=== PATIENT | female | born 1960 | race Two or more races ===

== ENCOUNTER 2019-08-14 10:11 | Emergency (ER) | payer OTHER, SELFPAY ==
[2019-08-14 10:15] VITALS: BP 166/85; PULSE 83; RESP 20; TEMP 36.7; O2SAT 100
--- NOTE | 2019-08-14 11:11 | ED.GENADULT ---
HPI - General Adult General Chief complaint: Upper Respiratory Infection Stated complaint: FEELS COLD Time Seen by Provider: 08/14/19 10:14 Source: patient and RN notes reviewed Mode of arrival: ambulatory Limitations: no limitations History of Present Illness HPI narrative: . 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 Patient requests return to work note as her work site is going on lock down . She denies fever, cough, foreign or domestic travel, Nausea /V/D, congestion, sore throat, frequency/urgency/ dysuria, sick family The patient has been informed that they may have pre-hypertension or Hypertension based on a BP reading in the department. She comments probably 'white-coat' ; I recommend that the patient call the primary care provider listed on their discharge instructions or a physician of their choice this week to arrange follow up for further evaluation of possible pre-hypertension or Hypertension Related Data Home Medications Medication Instructions Recorded Confirmed No Home Medications 08/14/19 08/14/19 Allergies Allergy/AdvReac Type Severity Reaction Status Date / Time hydrocodone AdvReac Severe NAUSEA, Verified 02/11/10 13:54 VOMITING Penicillins AdvReac Intermediate COULDN'T Verified 02/11/10 13:54 CONCENTRATE Review of Systems Review of Systems: Narrative: General/Constitutional: No weight loss,fever Eyes: N0: Redness,discharge Ears/Nose/Throat: No: Epistaxis,ear discharge Respiratory: Denies: Hemoptysis Gastrointestinal: No Vomiting, Bleeding-rectal Skin: No Lumps, eruption Neurologic: No Focal Weakness,Sz Hematologic: Denies: Petechiae/Purpura Psychiatric: No: Suicida ideationl All Other Systems: Reviewed and Negative PMFSH Comments At time of signature, agree with nursing past medical, surgical, social and family history. There is no relevant family history pertinent to the presenting complaint Exam Narrative: Exam Narrative: General Appearance: Well appearing, No distress EYE: PERRLA, Conjunctiva clear Ears: External ear normal Nose: Normal nose Mouth/Throat: Normal appearing, Normal lips Neck: Supple Respiratory: Airway patent, No respiratory distress Cardiovascular: RRR Musculoskeletal: Full ROM Skin: Warm, Dry Neurological: A&O x3, CN II-X intact Psychiatric: Normal mood, Normal affect Course Vital Signs Vital signs: Vital Signs Temperature 98.1 F 08/14/19 10:15 Pulse Rate 83 08/14/19 10:15 Respiratory Rate 20 08/14/19 10:15 Blood Pressure 166/85 H 08/14/19 10:15 Pulse Oximetry 100 08/14/19 10:15 Temperature 98.1 F 08/14/19 10:15 Pulse Rate 83 08/14/19 10:15 Respiratory Rate 20 08/14/19 10:15 Blood Pressure 166/85 H 08/14/19 10:15 Pulse Oximetry 100 08/14/19 10:15 Medical Decision Making Vital Signs Vital Signs: Vital Signs Temperature 98.1 F 08/14/19 10:15 Pulse Rate 83 08/14/19 10:15 Respiratory Rate 20 08/14/19 10:15 Blood Pressure 166/85 H 08/14/19 10:15 Pulse Oximetry 100 08/14/19 10:15 Temperature 98.1 F 08/14/19 10:15 Pulse Rate 83 08/14/19 10:15 Respiratory Rate 20 08/14/19 10:15 Blood Pressure 166/85 H 08/14/19 10:15 Pulse Oximetry 100 08/14/19 10:15 Discharge Plan Discharge Clinical Impression: Worried well, Encounter for examination of blood pressure without abnormal findings Patient Disposition: Home, Self-Care Condition: Stable Additional Instructions: YOu may preferentially take Tylenol , for chills Prescriptions: No Action No Home Medications RF: 0 Interventions: Discharge Disposition Last Done: 08/14/19 10:52 Follow-up/Referrals: Aimee Amador MD [Primary Care Provider] - Stand Alone Forms: Work/School Release IP Discharge Date/Time: 08/14/19 10:52
== END 2019-08-14 10:52 | disposition home or self-care (01) ==
PROVIDERS: Emergency Provider Emergency Medicine; PCP Family Medicine
DX: Z71.1 Person with feared health complaint in whom no diagnosis is made (principal); R03.0 Elevated blood-pressure reading, without diagnosis of hypertension
CPT/HCPCS: 99211; G0463

== ENCOUNTER 2020-02-13 11:06 | Outpatient (CLI) | payer OTHER, SELFPAY ==
[2020-02-13 12:21] LABS: Basophils Absolute Auto 0.1 K/mm3 (0.0-0.1); Basophils Percent Auto 1.2 % (0.2-1.2); Eosinophils Absolute Auto 0.1 K/mm3 (0-0.3); Eosinophils Percent Auto 2.1 % (0-4.4); Hematocrit 44.6 % (37.0-47.0); Hemoglobin 14.4 g/dL (12.0-15.0); Immature Granulocyte Absolute 0.01 K/mm3 (0.00-0.031); Immature Granulocyte Percent A 0.2 % (0-0.5); Lymphocytes Absolute Auto 1.74 K/mm3 (0.9-3.2); Lymphocytes Percent Auto 35.8 % (18.3-44.2); Mean Corpuscular HGB Conc 32.3 g/dl (32-36); Mean Corpuscular Hemoglobin 30.6 pg (26-34); Mean Corpuscular Volume 94.7 fl (80-100); Mean Platelet Volume 9.7 fl (7.4-10.4); Monocytes Absolute Auto 0.3 K/mm3 (0.1-0.6); Monocytes Percent Auto 5.3 % (2.6-8.5); Neutrophils Absolute Auto 2.7 K/mm3 (1.3-6.7); Neutrophils Percent Auto 55.4 % (45.5-73.1); Platelet Count Result 224 k/mm3 (150-375); Red Blood Count 4.71 M/mm3 (4.2-5.4); Red Cell Distribution Width 12.3 % (11.5-14.5); White Blood Count 4.9 K/mm3 (4.5-10.0)
[2020-02-13 12:37] LABS: Alanine Aminotransferase 60 U/L (4-35); Albumin Level 4.5 g/dL (3.5-5.1); Alkaline Phosphatase 90 U/L (38-126); Anion Gap 5 mmol/L (8-16); Aspartate Amino Transferase 48 U/L (14-36); Bilirubin,Total 0.8 mg/dL (0.2-1.3); Blood Urea Nitrogen 12 mg/dL (7-17); Carbon Dioxide 30 mmol/L (22-30); Chloride 103 mmol/L (98-107); Cholesterol 263 mg/dL (0-200); Estimated Glomerular Filt Rate > 60; Glucose 107 mg/dL (65-105); HDL Direct 56 mg/dL; Potassium 4.3 mmol/L (3.4-5.0); Sodium 138 mmol/L (137-145); Triglycerides 134 mg/dL (<150)
[2020-02-13 12:48] LABS: LDL Cholesterol Direct 172 mg/dL
[2020-02-13 13:12] LABS: Vitamin D 25 Hydroxy 36.9 ng/mL
[2020-02-13 13:43] LABS: Hepatitis C Virus Antibody Negative (Negative)
== END 2020-02-13 11:07 | disposition home or self-care (01) ==
LOC: ANHLAB 11:08
PROVIDERS: PCP Family Medicine; Visit Provider Family Medicine
DX: E55.9 Vitamin D deficiency, unspecified (principal); Z00.00 Encounter for general adult medical examination without abnormal findings; M81.0 Age-related osteoporosis without current pathological fracture; Z11.59 Encounter for screening for other viral diseases
CPT/HCPCS: 36415; 80053; 80061; 82306; 85025; 86803

== ENCOUNTER 2020-02-23 12:31 | Outpatient (CLI) | payer OTHER, SELFPAY ==
--- NOTE | ~2020-02-23 | CT_ITS ---
EXAMINATION: CT abdomen pelvis wo con DATE: 02/23/2020 12:54 INDICATION: Left lower quadrant abdominal pain. TECHNIQUE: Computed tomography (CT) of the abdomen and pelvis was performed without intravenous contr ast. Automated exposure control and iterative reconstruction technique were employed. The dose-length product was 213.57 mGy-cm. COMPARISON: None FINDINGS: Minimal atelectasis at the anterior left lung base. Heart size is normal. No pericardial or pleural e ffusion. Bilateral breast implants. Liver, spleen, bilateral adrenal glands and kidneys are normal. S mall gallstone at the fundus of the normal-appearing gallbladder with no gallbladder dilation, wall t hickening or pericholecystic inflammatory change to suggest acute cholecystitis. Common bile duct amanda sures up to 5 mm which is within normal limits. No intrahepatic biliary ductal dilation. 8 mm cystic lesion in the body of the pancreas. Bowels including the appendix are normal. Bladder, retroverted ut erus and adnexa are unremarkable. No free intraperitoneal gas or fluid. No pathologically enlarged ab dominal or pelvic lymphadenopathy. Mild thoracolumbar dextroscoliosis with mild spondylosis. IMPRESSION: 1. No acute intra-abdominal/pelvic process. 2. Cholelithiasis. 3. Indeterminate 8 mm cystic pancreatic lesion. The differential diagnosis includes pseudocyst, intra ductal papillary mucinous neoplasm (IPMN), mucinous cystic neoplasm (MCN), and the less common serous cystadenoma and neuroendocrine tumor. Correlate for history of pancreatitis. Recommend one-year foll ow-up pre and postcontrast pancreatic protocol MRI or CT. Reviewed, dictated and finalized at location A. IMPRESSION: 1. No acute intra-abdominal/pelvic process. 2. Cholelithiasis. 3. Indeterminate 8 mm cystic pancreatic lesion. The differential diagnosis incl udes pseudocyst, intraductal papillary mucinous neoplasm (IPMN), mucinous cysti c neoplasm (MCN), and the less common serous cystadenoma and neuroendocrine raffaele or. Correlate for history of pancreatitis. Recommend one-year follow-up pre and postcontrast pancreatic protocol MRI or CT.
== END 2020-02-23 12:32 | disposition home or self-care (01) ==
PROVIDERS: PCP Family Medicine; Visit Provider Family Medicine
DX: R10.32 Left lower quadrant pain (principal); K80.20 Calculus of gallbladder without cholecystitis without obstruction; K86.9 Disease of pancreas, unspecified
CPT/HCPCS: 74176

== ENCOUNTER 2020-03-11 10:11 | Outpatient (CLI) | payer OTHER, SELFPAY ==
--- NOTE | ~2020-03-11 | MM_ITS ---
EXAMINATION: MM scrn concepcion implant BI w ryland HISTORY: Screening mammogram TECHNIQUE: Craniocaudal and mediolateral oblique 3-D tomosynthesis images with implant displacement a nd synthetic 2-D images were generated. Craniocaudal and mediolateral oblique views of the breasts wi thout implant displacement were obtained using full field digital mammography. CAD analysis was submi tted and interpreted. COMPARISON: 06/23/2016 bilateral implant digital screening mammogram examination 03/31/2012 bilateral diagnostic implant digital mammogram BREAST PARENCHYMAL COMPOSITION: The breasts are heterogeneously dense, which may obscure small masses . FINDINGS: There are scattered bilateral benign calcifications. There is no evidence of suspicious mas s, calcification, or architectural distortion to suggest malignancy in either breast. There has been no suspicious interval change. IMPRESSION: 1. No mammographic evidence of malignancy. 2. Recommend routine screening mammography in one year. BI-RADS Category 2: Benign finding(s). Reviewed, dictated and finalized at location A.
--- NOTE | ~2020-03-11 | DEXA_ITS ---
Bone Density Report Name: Patsy Mckenzie Age: 59 Sex: Female Ethnicity: Date of : 1960 Indication: postmenopausal osteoporosis; Referring Provider: BOB HENAO Study: Bone densitometry was performed. Exam Date: March 11, 2020 Accession number: [id number] Bone Density: Region BMD T-score Z-score Classification AP Spine (L1-L4) 0.661 -3.5 -2.0 Osteoporosis Femoral Neck (Left) 0.573 -2.5 -1.1 Osteoporosis Total Hip (Left) 0.629 -2.6 -1.5 Osteoporosis Total Hip Bilateral Avg 0.612 -2.8 -1.7 Osteoporosis Femoral Neck (Right) 0.546 -2.7 -1.4 Osteoporosis Total Hip (Right) 0.593 -2.9 -1.8 Osteoporosis World Health Organization criteria for BMD impression classify patients as: Normal (T-score at or above -1.0), Osteopenia (T-score between -1.0 and -2.5), or Osteoporosis (T-score at or below -2.5). 10-year Fracture Risk: FRAX not reported because: Some T-score for Spine Total or Hip Total or Femoral Neck at or below -2.5 Previous Exams: Region Exam Age BMD T-score BMD Change BMD Change Date g/cm2 vs Baseline vs Previous AP Spine(L1-L4) 03/11/2020 59 0.661 -3.5 -0.179(-21.3%) -0.081(-10.9%) 02/28/2012 51 0.741 -2.8 -0.098(-11.7%) -0.098(-11.7%) 01/22/2010 49 0.840 -1.9 Total Hip(Left) 03/11/2020 59 0.629 -2.6 -0.173(-21.6%) -0.074(-10.5%) 02/28/2012 51 0.703 -2.0 -0.099(-12.4%) -0.099(-12.4%) 01/22/2010 49 0.803 -1.1 Total Hip(Right) 03/11/2020 59 0.593 -2.9 -0.139(-19.0%) -0.087(-12.8%) 02/28/2012 51 0.680 -2.1 -0.051(-7.0%)# -0.051(-7.0%)# 01/22/2010 49 0.731 -1.7 *Denotes significance at 95% confidence level, LSC for AP Spine = 0.022 g/cm2, LSC for Total Hip = 0.027 g/cm2 Clinical Information Provided by Patient: Has used the following medications: Vitamin D Patient maximum height was 64 Menopause Age: 50 Does not regularly consume dairy products Drinks caffeinated beverages Onset of menses at age 14 Number of children 0 Impression: The patient has osteoporosis, based on the Total Spine T-score. No significant bone loss was observed. Discussion: HIGH RISK OF FRACTURE. BONE DENSITY IS UNDESIRABLY LOW AT ONE OR MORE SKELETAL SITES, CONSISTENT WITH OSTEOPOROSIS. ALSO, BONE DENSITY IS LOWER THAN EXPECTED FOR AGE AND SEX AT ONE OR MORE SKELETAL SITES; RECOMMEND A DILIGENT SEARCH FOR SECONDARY CAUSES OF BONE LOSS. This patient's lowest T-score meets the World Health Organization's (WHO) crite
== END 2020-03-11 10:12 | disposition home or self-care (01) ==
PROVIDERS: PCP Family Medicine; Visit Provider Family Medicine
DX: M81.0 Age-related osteoporosis without current pathological fracture (principal); E55.9 Vitamin D deficiency, unspecified; Z12.31 Encounter for screening mammogram for malignant neoplasm of breast; Z78.0 Asymptomatic menopausal state
CPT/HCPCS: 77063; 77067; 77080

== ENCOUNTER 2020-03-14 03:21 | Outpatient (CLI) | payer OTHER, SELFPAY ==
[2020-03-14 17:45] LABS: SARS-CoV-2 RNA PCR Negative
== END 2020-03-14 03:22 | disposition home or self-care (01) ==
LOC: ANHCOVIDDT 03:22
PROVIDERS: PCP Family Medicine; Visit Provider Internal Medicine Gastroenterology
DX: Z01.812 Encounter for preprocedural laboratory examination (principal); Z20.828 Contact with and (suspected) exposure to other viral communicable diseases
CPT/HCPCS: 87635; C9803; U0003

== ENCOUNTER 2020-03-17 01:16 | Day surgery (SDC) | payer OTHER, SELFPAY ==
[2020-03-11 14:07] VITALS: BMI 21.4
[2020-03-17] MEDS: LACTATED RINGERS 1,000 ML 150 ML IV CONT (06:30)
[2020-03-17 06:32] VITALS: BP 163/90; PULSE 94; RESP 16; TEMP 36.9; O2SAT 94; BMI 20.7
--- NOTE | 2020-03-17 07:14 | WPDANESEPPF ---
Anes - Initial Pre Proc Eval Procedure: Operation Date: 03/17/20 07:30 Proposed Procedures p Screening Colonoscopy - Blake Reyes MD Date/Time: 03/17/20 07:14 Surgeon: Blake Reyes MD Pre Op Diagnosis: Neoplasm Screening Patient Data Age: 59 Gender: F Height: 5 ft 4 in Weight: 54.7 kg Last Vital Signs Temp 98.5 F 03/17/20 06:32 Pulse 94 03/17/20 06:32 Resp 16 03/17/20 06:32 BP 163/90 H 03/17/20 06:32 Pulse Ox 94 03/17/20 06:32 Allergies Allergy/AdvReac Type Severity Reaction Status Date / Time alendronate sodium Allergy Mild Shakiness Verified 03/17/20 06:31 Poultry Allergy Mild Itching Verified 03/17/20 06:31 hydrocodone AdvReac Severe NAUSEA, Verified 03/17/20 06:31 VOMITING Penicillins AdvReac Intermediate COULDN'T Verified 03/17/20 06:31 CONCENTRATE Home Medications Medication Instructions Recorded Confirmed Type ascorbic acid (vitamin C) 1 g PO DAILY 03/11/20 03/11/20 History cholecalciferol (vitamin D3) 25 mcg PO WEEKLY 03/11/20 03/11/20 History [Vitamin D3] denosumab 60 mg/mL subcutaneous 60 mg SUBCUT [id number] #1 ml 03/11/20 03/17/20 Rx syringe devadksimrza-qrx-xhvt-FA-vit K 1 tablet PO DAILY 03/11/20 03/11/20 History [Adults Multivitamin] omega-3 fatty acids [Fish Oil] 1 cap PO DAILY 03/11/20 03/11/20 History Patient hx anesthesia problems: none Family hx anesthesia problems: none PMFSH Past Medical History Medical History (Updated 03/17/20 @ 07:14 by Arsh Leone MD) Pancreatic abnormality : 8mm cystic lesion/ repeat imaging in one year Family History Family History (System 02/13/20 @ 14:21 by Rosita John) Mother Patient's mother is Father Patient's father is Social History Social History (System 02/13/20 @ 14:21 by Rosita John) Smoking status: Never smoker Alcohol intake: never Substance use: never Substance use type: does not use Living arrangements: alone Spiritual care concerns: No Anes - Eval Final PreProcedure Day of Procedure 03/17/20 07:14 Patient weight: normal Heart: regular rate and rhythm Lungs: clear to auscultation Airway: Mallampati scale class III Neurological: alert and oriented Last oral intake: >/= 8 hours ASA classification: II Emergent: no Anesthetic plan: proceed Anesthesia type and monitoring: general GIVS and standard monitoring Informed Consent: The patient's anesthetic plan and its attendant risks and benefits were discussed with the patient/family/POA. Questions were solicited and answers provided to the satisfaction of the patient/family/POA.
[2020-03-17] MEDS: SIMETHICONE ORAL SUSPENSION 20 MG/0.3 ML 30 ML BOTTLE 0.6 ML IRRIGATION (07:46)
--- NOTE | 2020-03-17 07:53 | WPDGICN ---
Assessment and Plan Assessment and plan (1) Encounter for screening colonoscopy: Code(s): Z12.11 - Encounter for screening for malignant neoplasm of colon Status: Acute Assessment and Plan: Patient presents for screening colonoscopy. Last exam 10 years ago was unremarkable. Plan is for high-fiber diet colonoscopy will be performed this report follow separately. GI Consult Note Consult date/time: 03/17/20 07:53 HPI: Patsy Mckenzie is a 59 year old female Seen in evaluation at the request Dr. Roby Amador. Patient presents for neoplasia screening colonoscopy. Patient's current weight appetite bowel movements are normal. She denies abdominal pain. She has had no bleeding. Family history noncontributory. Last colonoscopy was 10 years ago. Review of Systems Review of Systems: All systems reviewed & are unremarkable except as noted in HPI and below PMFSH Past Medical History Medical History (Updated 03/17/20 @ 07:54 by Blake Reyes MD) Pancreatic abnormality : 8mm cystic lesion/ repeat imaging in one year Family History Family History (System 02/13/20 @ 14:21 by Rosita John) Mother Patient's mother is Father Patient's father is Social History Social History (System 02/13/20 @ 14:21 by Rosita John) Smoking status: Never smoker Alcohol intake: never Substance use: never Substance use type: does not use Living arrangements: alone Spiritual care concerns: No Meds Home Medications and Allergies Home Medications Medication Instructions Recorded Confirmed Type ascorbic acid (vitamin C) 1 g PO DAILY 03/11/20 03/11/20 History cholecalciferol (vitamin D3) 25 mcg PO WEEKLY 03/11/20 03/11/20 History [Vitamin D3] denosumab 60 mg/mL subcutaneous 60 mg SUBCUT [id number] #1 ml 03/11/20 03/17/20 Rx syringe qypxtukkcony-kxu-gcwc-FA-vit K 1 tablet PO DAILY 03/11/20 03/11/20 History [Adults Multivitamin] omega-3 fatty acids [Fish Oil] 1 cap PO DAILY 03/11/20 03/11/20 History Allergies Allergy/AdvReac Type Severity Reaction Status Date / Time alendronate sodium Allergy Mild Shakiness Verified 03/17/20 06:31 Poultry Allergy Mild Itching Verified 03/17/20 06:31 hydrocodone AdvReac Severe NAUSEA, Verified 03/17/20 06:31 VOMITING Penicillins AdvReac Intermediate COULDN'T Verified 03/17/20 06:31 CONCENTRATE Vital Signs Vital Signs - 24 hr 03/17/20 06:32 Temperature 98.5 F Pulse Rate 94 Respiratory Rate 16 Blood Pressure 163/90 H Pulse Oximetry 94 Exam Narrative: Exam Narrative: Physical exam reveals patient to be alert. Vital signs stable. HEENT exam unremarkable. Lungs are clear to auscultation and percussion. Heart is without murmur or extra sounds. Abdominal exam bowel sounds are present soft nontender with no hepatosplenomegaly. Digital external rectal exam normal.
[2020-03-17 07:54] VITALS: BP 93/54; PULSE 80; RESP 21; O2SAT 99
[2020-03-17 08:04] VITALS: BP 95/55; PULSE 78; RESP 20; O2SAT 99
[2020-03-17 08:14] VITALS: BP 116/64; PULSE 86; RESP 22; O2SAT 100
== END 2020-03-17 08:34 | disposition home or self-care (01) ==
PROVIDERS: PCP Family Medicine; Visit Provider Internal Medicine Gastroenterology
PROC: 0DJD8ZZ Inspection of Lower Intestinal Tract, Via Natural or Artificial Opening Endoscopic (ICD-10-PCS; CPT 45378; principal; 2020-03-17 07:30)
DX: Z12.11 Encounter for screening for malignant neoplasm of colon (principal); K86.89 Other specified diseases of pancreas; K64.8 Other hemorrhoids
CPT/HCPCS: 45378; J2704; J7120

== ENCOUNTER 2020-04-02 11:02 | Outpatient (CLI) | payer OTHER, SELFPAY ==
[2020-04-02 11:51] LABS: Hemoglobin A1C 5.3 % (<5.7)
[2020-04-02 12:01] LABS: Potassium 4.1 mmol/L (3.4-5.0)
[2020-04-02 12:13] LABS: LDL Cholesterol Direct 181 mg/dL
[2020-04-02 12:27] LABS: Alanine Aminotransferase 39 U/L (4-35); Albumin Level 4.6 g/dL (3.5-5.1); Alkaline Phosphatase 81 U/L (38-126); Anion Gap 7 mmol/L (8-16); Aspartate Amino Transferase 43 U/L (14-36); Bilirubin,Total 1.2 mg/dL (0.2-1.3); Blood Urea Nitrogen 19 mg/dL (7-17); Calcium 10.1 mg/dL (8.4-10.2); Carbon Dioxide 30 mmol/L (22-30); Chloride 103 mmol/L (98-107); Cholesterol 272 mg/dL (0-200); Estimated Glomerular Filt Rate > 60; Glucose 104 mg/dL (65-105); HDL Direct 58 mg/dL; Sodium 140 mmol/L (137-145); Triglycerides 84 mg/dL (<150)
[2020-04-02 13:04] LABS: Hepatitis B Surface Antigen Negative (Negative)
[2020-04-02 13:10] LABS: HAV RESULT Negative (Negative); Hepatitis B Core IgM Result Negative (Negative)
[2020-04-02 13:22] LABS: Hepatitis C Virus Antibody Negative (Negative)
== END 2020-04-02 11:03 | disposition home or self-care (01) ==
PROVIDERS: PCP Family Medicine; Visit Provider Family Medicine
DX: M81.0 Age-related osteoporosis without current pathological fracture (principal); E78.2 Mixed hyperlipidemia; R73.03 Prediabetes; R74.8 Abnormal levels of other serum enzymes
CPT/HCPCS: 36415; 80053; 80061; 80074; 83036

== ENCOUNTER 2020-12-05 10:30 | Outpatient (CLI) | payer OTHER, SELFPAY ==
[2020-12-05 11:00] LABS: Alanine Aminotransferase 55 U/L (4-35); Albumin Level 4.7 g/dL (3.5-5.1); Alkaline Phosphatase 63 U/L (38-126); Anion Gap 9 mmol/L (8-16); Aspartate Amino Transferase 45 U/L (14-36); Bilirubin,Total 1.1 mg/dL (0.2-1.3); Blood Urea Nitrogen 12 mg/dL (7-17); Calcium 9.9 mg/dL (8.4-10.2); Carbon Dioxide 28 mmol/L (22-30); Chloride 105 mmol/L (98-107); Cholesterol 284 mg/dL (0-200); Estimated Glomerular Filt Rate > 60; Glucose 96 mg/dL (65-105); HDL Direct 57 mg/dL; Sodium 142 mmol/L (137-145); Triglycerides 103 mg/dL (<150)
[2020-12-05 11:05] LABS: Hemoglobin A1C 5.4 % (<5.7)
[2020-12-05 11:11] LABS: LDL Cholesterol Direct 174 mg/dL
[2020-12-05 12:25] LABS: Vitamin D 25 Hydroxy 52.1 ng/mL
== END 2020-12-05 10:31 | disposition home or self-care (01) ==
PROVIDERS: PCP Family Medicine; Visit Provider Family Medicine
DX: E55.9 Vitamin D deficiency, unspecified (principal); E78.2 Mixed hyperlipidemia; I10 Essential (primary) hypertension; M81.0 Age-related osteoporosis without current pathological fracture; R74.8 Abnormal levels of other serum enzymes; Z78.0 Asymptomatic menopausal state; Z79.899 Other long term (current) drug therapy
CPT/HCPCS: 36415; 80053; 80061; 82306; 83036

== ENCOUNTER 2021-03-27 11:08 | Outpatient (CLI) | payer OTHER, SELFPAY ==
[2021-03-27 11:33] LABS: Basophils Absolute Auto 0.1 K/mm3 (0.0-0.1); Basophils Percent Auto 1.2 % (0.2-1.2); Eosinophils Absolute Auto 0.1 K/mm3 (0-0.3); Eosinophils Percent Auto 2.8 % (0-4.4); Hematocrit 44.2 % (37.0-47.0); Hemoglobin 14.3 g/dL (12.0-15.0); Lymphocytes Absolute Auto 1.88 K/mm3 (0.9-3.2); Lymphocytes Percent Auto 43.4 % (18.3-44.2); Mean Corpuscular HGB Conc 32.4 g/dl (32-36); Mean Corpuscular Hemoglobin 31.2 pg (26-34); Mean Corpuscular Volume 96.3 fl (80-100); Monocytes Absolute Auto 0.3 K/mm3 (0.1-0.6); Monocytes Percent Auto 6.2 % (2.6-8.5); Neutrophils Percent Auto 46.4 % (45.5-73.1); Platelet Count Result 235 k/mm3 (150-375); Red Blood Count 4.59 M/mm3 (4.2-5.4); Red Cell Distribution Width 12.9 % (11.5-14.5); White Blood Count 4.3 K/mm3 (4.5-10.0)
[2021-03-27 11:53] LABS: Alanine Aminotransferase 95 U/L (4-35); Albumin Level 4.4 g/dL (3.5-5.1); Alkaline Phosphatase 89 U/L (38-126); Amylase 169 U/L (30-110); Anion Gap 7 mmol/L (8-16); Aspartate Amino Transferase 52 U/L (14-36); Blood Urea Nitrogen 12 mg/dL (7-17); Calcium 9.5 mg/dL (8.4-10.2); Carbon Dioxide 28 mmol/L (22-30); Chloride 105 mmol/L (98-107); Cholesterol 267 mg/dL (0-200); Estimated Glomerular Filt Rate > 60; Glucose 104 mg/dL (65-110); HDL Direct 58 mg/dL; Lipase 191 U/L (23-300); Sodium 140 mmol/L (137-145); Triglycerides 94 mg/dL (<150)
[2021-03-27 12:04] LABS: LDL Cholesterol Direct 168 mg/dL
[2021-03-27 12:11] LABS: Vitamin D 25 Hydroxy 40.2 ng/mL
[2021-03-27 12:29] LABS: Hemoglobin A1C 5.5 % (<5.7)
== END 2021-03-27 11:09 | disposition home or self-care (01) ==
LOC: ANHLAB 11:12
PROVIDERS: PCP Family Medicine; Visit Provider Family Medicine
DX: M81.0 Age-related osteoporosis without current pathological fracture (principal); Q45.3 Other congenital malformations of pancreas and pancreatic duct; R73.03 Prediabetes; R74.8 Abnormal levels of other serum enzymes; I10 Essential (primary) hypertension
CPT/HCPCS: 36415; 80053; 80061; 82150; 82306; 83036; 83690; 85025

== ENCOUNTER 2021-04-02 09:45 | Outpatient (CLI) | payer OTHER, SELFPAY ==
--- NOTE | ~2021-04-02 | MM_ITS ---
EXAMINATION: MM scrn concepcion implant BI w ryland HISTORY: Screening mammogram TECHNIQUE: Craniocaudal and mediolateral oblique 3-D tomosynthesis images with implant displacement a nd synthetic 2-D images were generated. Craniocaudal and mediolateral oblique views of the breasts wi thout implant displacement were obtained using full field digital mammography. CAD analysis was submi tted and interpreted. COMPARISON: No prior mammogram is available for comparison at this institution. BREAST PARENCHYMAL COMPOSITION: The breasts are heterogeneously dense, which may obscure small masses . FINDINGS: Status post bilateral augmentation mammoplasty. Occasional bilateral benign calcifications. There is no evidence of suspicious mass, calcification, or architectural distortion to suggest malig tommy in either breast. There has been no suspicious interval change. IMPRESSION: 1. No mammographic evidence of malignancy. 2. Recommend routine screening mammography in one year. BI-RADS Category 2: Benign finding(s). Reviewed, dictated and finalized at location A. NOLOGY TEACHER
== END 2021-04-02 09:46 | disposition home or self-care (01) ==
LOC: ANHIMG 09:47
PROVIDERS: PCP Family Medicine; Visit Provider Family Medicine
DX: Z12.31 Encounter for screening mammogram for malignant neoplasm of breast (principal)
CPT/HCPCS: 77063; 77067

== ENCOUNTER 2022-03-25 10:32 | Outpatient (CLI) | payer OTHER, SELFPAY ==
[2022-03-25 18:50] LABS: Basophils Absolute Auto 0.1 K/mm3 (0.0-0.1); Basophils Percent Auto 1.3 % (0.2-1.2); Eosinophils Absolute Auto 0.1 K/mm3 (0-0.3); Eosinophils Percent Auto 2.6 % (0-4.4); Hematocrit 43.3 % (37.0-47.0); Hemoglobin 13.8 g/dL (12.0-15.0); Immature Granulocyte Absolute 0.01 K/mm3 (0.00-0.031); Immature Granulocyte Percent A 0.2 % (0-0.5); Lymphocytes Absolute Auto 1.67 K/mm3 (0.9-3.2); Lymphocytes Percent Auto 36.4 % (18.3-44.2); Mean Corpuscular HGB Conc 31.9 g/dl (32-36); Mean Corpuscular Hemoglobin 30.4 pg (26-34); Mean Corpuscular Volume 95.4 fl (80-100); Mean Platelet Volume 10.7 fl (7.4-10.4); Monocytes Absolute Auto 0.3 K/mm3 (0.1-0.6); Monocytes Percent Auto 6.5 % (2.6-8.5); Neutrophils Absolute Auto 2.4 K/mm3 (1.3-6.7); Platelet Count Result 204 k/mm3 (150-375); Red Blood Count 4.54 M/mm3 (4.2-5.4); Red Cell Distribution Width 12.9 % (11.5-14.5); White Blood Count 4.6 K/mm3 (4.5-10.0)
[2022-03-25 18:52] LABS: Alanine Aminotransferase 42 U/L (6-35); Albumin Level 4.5 g/dL (3.5-5.1); Alkaline Phosphatase 86 U/L (38-126); Anion Gap 14 mmol/L (8-16); Aspartate Amino Transferase 39 U/L (14-36); Bilirubin,Total 0.9 mg/dL (0.2-1.3); Blood Urea Nitrogen 11 mg/dL (7-17); Calcium 9.7 mg/dL (8.4-10.2); Carbon Dioxide 22 mmol/L (22-30); Chloride 104 mmol/L (98-107); Cholesterol 248 mg/dL (0-200); Estimated Glomerular Filt Rate > 60; Glucose 92 mg/dL (65-110); HDL Direct 56 mg/dL; Potassium 3.5 mmol/L (3.4-5.0); Sodium 140 mmol/L (137-145); Triglycerides 80 mg/dL (<150)
[2022-03-25 19:03] LABS: LDL Cholesterol Direct 153 mg/dL
[2022-03-25 19:05] LABS: Vitamin D 25 Hydroxy 28.2 ng/mL
[2022-03-25 20:24] LABS: IFOB Positive Control Positive; Immunochemical Fecal Occult Bl Negative (N)
== END 2022-03-25 10:33 | disposition home or self-care (01) ==
LOC: ANHGOSHLAB 10:36
PROVIDERS: PCP Family Medicine; Visit Provider Family Medicine
DX: Z00.00 Encounter for general adult medical examination without abnormal findings (principal); M81.0 Age-related osteoporosis without current pathological fracture; Z78.0 Asymptomatic menopausal state; Z12.11 Encounter for screening for malignant neoplasm of colon
CPT/HCPCS: 36415; 80053; 80061; 82274; 82306; 85025

== ENCOUNTER 2022-04-21 08:38 | Outpatient (CLI) | payer OTHER, SELFPAY ==
--- NOTE | ~2022-04-21 | DEXA_ITS ---
Bone Density Report Name: INGRID BOGGS Age: 61 Sex: Female Ethnicity: Date of : 1960 Indication: postmenopausal; screening for osteoporosis; Referring Provider: BOB HENAO Study: Bone densitometry was performed. Exam Date: April 21, 2022 Accession number: [id number] Bone Density: Region BMD T-score Z-score Classification AP Spine(L1-L4) 0.673 -3.4 -1.7 Osteoporosis Femoral Neck (Left) 0.620 -2.1 -0.6 Osteopenia Total Hip (Left) 0.684 -2.1 -1.0 Osteopenia Femoral Neck (Right) 0.575 -2.5 -1.0 Osteoporosis Total Hip (Right) 0.645 -2.4 -1.3 Osteopenia Total Hip Mean 0.664 -2.3 -1.2 Osteopenia World Health Organization criteria for BMD impression classify patients as: Normal (T-score at or above -1.0), Osteopenia (T-score between -1.0 and -2.5), or Osteoporosis (T-score at or below -2.5). 10-year Fracture Risk: FRAX not reported because: Some T-score for Spine Total or Hip Total or Femoral Neck at or below -2.5 Treated for osteoporosis Clinical Information Provided by Patient: Is being treated for osteoporosis Has used the following medications: Prolia (i.e. denosumab), Vitamin D Patient maximum height was 64 Menopause Age: 50 Does not regularly consume dairy products Drinks caffeinated beverages Onset of menses at age 14 Number of children 0 Impression: The patient has osteoporosis, based on the Total Spine T-score. Discussion: It is important to ask patients whether they are taking their medications and to encourage continued and appropriate compliance with their osteoporosis therapies to reduce fracture risk. It is also important to review their risk factors and encourage appropriate calcium and vitamin D intakes, exercise, fall prevention and other lifestyle measures. Follow-Up: Consider a repeat BMD and Vertebral Fracture Assessment (VFA) exam in 2 years or sooner if medically necessary, to reassess this patient's status. Reported by: [facility] on 04/21/2022 9:05:00 AM. Reviewed, dictated and finalized at location ASai PARKER
--- NOTE | ~2022-04-21 | MM_ITS ---
EXAMINATION: MM scrn concepcion implant BI w ryland HISTORY: Screening mammogram TECHNIQUE: Craniocaudal and mediolateral oblique 3-D tomosynthesis images with implant displacement a nd synthetic 2-D images were generated. Craniocaudal and mediolateral oblique views of the breasts wi thout implant displacement were obtained using full field digital mammography. CAD analysis was submi tted and interpreted. COMPARISON: 04/02/2021, 03/11/2020, 06/23/2016 BREAST PARENCHYMAL COMPOSITION: There are scattered areas of fibroglandular density. FINDINGS: There is no evidence of suspicious mass, calcification, or architectural distortion to sugg est malignancy in either breast. There has been no suspicious interval change. IMPRESSION: 1. No mammographic evidence of malignancy. 2. Recommend routine screening mammography in one year. BI-RADS Category 1: Negative Reviewed, dictated and finalized at location A. ENT FINANCIAL SERVICES SPECIALIST
== END 2022-04-21 08:39 | disposition home or self-care (01) ==
PROVIDERS: PCP Family Medicine; Visit Provider Family Medicine
DX: Z78.0 Asymptomatic menopausal state (principal); Z79.899 Other long term (current) drug therapy; M81.0 Age-related osteoporosis without current pathological fracture; M85.852 Other specified disorders of bone density and structure, left thigh; M85.851 Other specified disorders of bone density and structure, right thigh
CPT/HCPCS: 77063; 77067; 77080

== ENCOUNTER 2023-03-29 10:27 | Outpatient (CLI) | payer OTHER, SELFPAY ==
[2023-03-29 19:47] LABS: Basophils Absolute Auto 0.1 K/mm3 (0.0-0.1); Basophils Percent Auto 1.2 % (0.2-1.2); Eosinophils Absolute Auto 0.2 K/mm3 (0-0.3); Eosinophils Percent Auto 3.8 % (0-4.4); Hematocrit 45.9 % (37.0-47.0); Hemoglobin 14.6 g/dL (12.0-15.0); Immature Granulocyte Absolute 0.01 K/mm3 (0.00-0.031); Immature Granulocyte Percent A 0.2 % (0-0.5); Lymphocytes Absolute Auto 2.06 K/mm3 (0.9-3.2); Lymphocytes Percent Auto 48.9 % (18.3-44.2); Mean Corpuscular HGB Conc 31.8 g/dl (32-36); Mean Corpuscular Hemoglobin 30.2 pg (26-34); Mean Corpuscular Volume 94.8 fl (80-100); Mean Platelet Volume 9.8 fl (7.4-10.4); Monocytes Absolute Auto 0.3 K/mm3 (0.1-0.6); Monocytes Percent Auto 6.7 % (2.6-8.5); Neutrophils Absolute Auto 1.7 K/mm3 (1.3-6.7); Neutrophils Percent Auto 39.2 % (45.5-73.1); Platelet Count Result 219 k/mm3 (150-375); Red Blood Count 4.84 M/mm3 (4.2-5.4); Red Cell Distribution Width 12.6 % (11.5-14.5); White Blood Count 4.2 K/mm3 (4.5-10.0)
[2023-03-29 19:49] LABS: Alanine Aminotransferase 38 U/L (6-35); Albumin Level 4.4 g/dL (3.5-5.1); Alkaline Phosphatase 83 U/L (38-126); Anion Gap 4 mmol/L (8-16); Aspartate Amino Transferase 42 U/L (14-36); Bilirubin,Total 1.1 mg/dL (0.2-1.3); Blood Urea Nitrogen 11 mg/dL (7-17); Calcium 9.9 mg/dL (8.4-10.2); Carbon Dioxide 29 mmol/L (22-30); Chloride 106 mmol/L (98-107); Cholesterol 264 mg/dL (0-200); Estimated Glomerular Filt Rate > 60; Glucose 95 mg/dL (65-110); HDL Direct 50 mg/dL; Potassium 3.9 mmol/L (3.4-5.0); Sodium 139 mmol/L (137-145); Triglycerides 98 mg/dL (<150)
[2023-03-29 20:02] LABS: LDL Cholesterol Direct 173 mg/dL
[2023-03-29 21:34] LABS: Hemoglobin A1C 5.4 % (<5.7)
[2023-04-01 14:30] LABS: Vitamin D 1,25 (OH)2 Total 50 pg/mL (18-72); Vitamin D2 1,25 (OH)2 <8 pg/mL; Vitamin D3 1,25 (OH)2 50 pg/mL
== END 2023-03-29 10:28 | disposition home or self-care (01) ==
LOC: ANHGOSHLAB 10:28
PROVIDERS: PCP Family Medicine; Visit Provider Physician Assistant
DX: E78.2 Mixed hyperlipidemia (principal); R73.03 Prediabetes; M81.0 Age-related osteoporosis without current pathological fracture
CPT/HCPCS: 36415; 80053; 80061; 82652; 83036; 84443; 85025

== ENCOUNTER 2023-06-08 08:57 | Emergency (ER) | payer OTHER, SELFPAY ==
--- NOTE | 2023-06-08 09:03 | ED.URI ---
HPI - URI/Sore Throat General Chief Complaint: Upper Respiratory Infection Stated Complaint: HEADACHE/THROAT ITCHING/CHILLS Time Seen by Provider: 06/08/23 09:03 Source: patient and RN notes reviewed History of Present Illness HPI Narrative: Patient is a 62-year-old female who presents to urgent care with complaints of headache, chills, congestion. Patient states that it started on Tuesday with a sore throat and symptoms worsened yesterday. Patient states that yesterday her doctor called her and azithromycin but symptoms have not improved. Patient has been taking Tylenol and ibuprofen. Denies any cough, shortness of breath, nausea or vomiting. Denies any ill contacts. No other acute complaints. No acute distress noted. Patient aware of the plan of care. Some parts of this dictation were generated by voice recognition software and may contain typographical and/or grammatical inaccuracies. Related Data Home Medications Medication Instructions Recorded Confirmed cholecalciferol (vitamin D3) 25 25 mcg PO WEEKLY 03/11/20 06/08/23 mcg (1,000 unit) capsule (Vitamin D3) multivit with minerals-iron 18 1 tablet PO DAILY 03/11/20 06/08/23 mg-folic ac 400 mcg-vit K 25 mcg tablet (Adults Multivitamin) Allergies Allergy/AdvReac Type Severity Reaction Status Date / Time alendronate sodium Allergy Mild Shakiness Verified 06/08/23 09:01 Poultry Allergy Mild Itching Verified 06/08/23 09:01 hydrocodone AdvReac Severe NAUSEA, Verified 06/08/23 09:01 VOMITING Penicillins AdvReac Intermediate COULDN'T Verified 06/08/23 09:01 CONCENTRATE Review of Systems Review of Systems: CONSTITUTIONAL: Reports fever, chills EYES: Denies visual changes, redness, or discharge. ENT: Reports of scratchy throat and congestion CARDIOVASCULAR: Denies chest pain, palpitations, or edema. RESPIRATORY: Denies cough or dyspnea. GASTROINTESTINAL: Denies abdominal pain, nausea, vomiting, or diarrhea. GENITOURINARY: Denies dysuria or hematuria. SKIN: Denies rash or itching. MUSCULOSKELETAL: Denies back pain, joint pain, or myalgia. NEUROLOGIC: Reports of headache All other systems reviewed are negative, except as documented in HPI. [facility] Past Medical History Medical History Ear itching Encounter for screening colonoscopy Impacted cerumen of right ear Normal colonoscopy 10.26.20 Family History Family History Mother Patient's mother is Father Patient's father is Social History Social History Social History: Caffeine-tea Smoking status: Never smoker Alcohol intake: never Substance use: never Substance use type: does not use Lack of Transportation: No Lack of Food: Never True Current Housing: I Have Housing Concerned About Future Housing: No Difficulty Paying Gas/Electric Bills: No Difficulty Paying for Meds: No Currently Unemployed: No Education: High School Diploma/GED Difficulty w/ Childcare or Family Care: No Living arrangements: alone Spiritual care concerns: No Comments At the time of my signature, I reviewed and agree with the nursing past medical, surgical, social, and family history. There is no relevant family history pertinent to the patient complaint. Exam Narrative: GENERAL: This is a well-nourished, well-developed patient. Appears slightly flushed and fatigued HEAD: normocephalic, atraumatic. EYES: PERRL. Sclera clear/white. Vision is grossly intact. EARS: External ears normal, auditory canals clear and without drainage, TMs normal without perforation. Hearing grossly intact. NOSE: External nose normal with no obvious nasal discharge, nares without redness, clear rhinorrhea. THROAT: Mucous membranes moist, mild erythema to posterior pharynx with moderate post
[2023-06-08 09:16] VITALS: BP 121/79; PULSE 97; RESP 16; TEMP 38.6; O2SAT 100
== END 2023-06-08 09:50 | disposition home or self-care (01) ==
PROVIDERS: Emergency Provider Nurse Practitioner Family; PCP Family Medicine
DX: J10.1 Influenza due to other identified influenza virus with other respiratory manifestations (principal); Z20.822 Contact with and (suspected) exposure to COVID-19
CPT/HCPCS: 87081; 87426; 87804; 87880; 99213; G0463

== ENCOUNTER 2023-07-22 09:05 | Outpatient (CLI) | payer OTHER, SELFPAY ==
--- NOTE | ~2023-07-22 | MM_ITS ---
EXAMINATION: MM scrn concepcion implant BI w ryland HISTORY: Screening mammogram TECHNIQUE: Craniocaudal and mediolateral oblique 3-D tomosynthesis images with implant displacement a nd synthetic 2-D images were generated. Craniocaudal and mediolateral oblique views of the breasts wi thout implant displacement were obtained using full field digital mammography. CAD analysis was submi tted and interpreted. COMPARISON: Comparison to multiple prior studies sequentially, with oldest reviewed study dated 05/2026. BREAST PARENCHYMAL COMPOSITION: The breasts are heterogeneously dense, which may obscure small masses . FINDINGS: There is no evidence of suspicious mass, calcification, or architectural distortion to sugg est malignancy in either breast. There has been no suspicious interval change. IMPRESSION: 1. No mammographic evidence of malignancy. 2. Recommend routine screening mammography in one year. BI-RADS Category 1: Negative Reviewed, dictated and finalized at location A. 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
== END 2023-07-22 09:06 | disposition home or self-care (01) ==
LOC: ANHIMG 09:06
PROVIDERS: PCP Family Medicine; Visit Provider Physician Assistant
DX: Z12.31 Encounter for screening mammogram for malignant neoplasm of breast (principal)
CPT/HCPCS: 77063; 77067

== ENCOUNTER 2024-05-07 10:58 | Outpatient (CLI) | payer MEDICARE, SELFPAY ==
[2024-05-07 11:31] LABS: Basophils Absolute Auto 0.1 K/mm3 (0.0-0.1); Basophils Percent Auto 1.2 % (0.2-1.2); Eosinophils Absolute Auto 0.2 K/mm3 (0-0.3); Eosinophils Percent Auto 4.6 % (0-4.4); Hematocrit 43.6 % (37.0-47.0); Immature Granulocyte Absolute 0.01 K/mm3 (0.00-0.031); Immature Granulocyte Percent A 0.2 % (0-0.5); Lymphocytes Absolute Auto 2.28 K/mm3 (0.9-3.2); Lymphocytes Percent Auto 52.9 % (18.3-44.2); Mean Corpuscular HGB Conc 32.1 g/dl (32-36); Mean Corpuscular Hemoglobin 30.6 pg (26-34); Mean Corpuscular Volume 95.4 fl (80-100); Mean Platelet Volume 9.8 fl (7.4-10.4); Monocytes Absolute Auto 0.3 K/mm3 (0.1-0.6); Neutrophils Absolute Auto 1.5 K/mm3 (1.3-6.7); Neutrophils Percent Auto 34.1 % (45.5-73.1); Platelet Count Result 194 k/mm3 (150-375); Red Blood Count 4.57 M/mm3 (4.2-5.4); White Blood Count 4.3 K/mm3 (4.5-10.0)
[2024-05-07 11:46] LABS: Alanine Aminotransferase 29 U/L (6-35); Albumin Level 4.3 g/dL (3.5-5.1); Alkaline Phosphatase 86 U/L (38-126); Anion Gap 6 mmol/L (4-12); Aspartate Amino Transferase 33 U/L (14-36); Blood Urea Nitrogen 13 mg/dL (7-17); Calcium 9.6 mg/dL (8.4-10.2); Carbon Dioxide 27 mmol/L (22-30); Chloride 108 mmol/L (98-107); Cholesterol 244 mg/dL (0-200); Estimated Glomerular Filt Rate > 60; Glucose 103 mg/dL (65-110); HDL Direct 54 mg/dL; Potassium 4.2 mmol/L (3.4-5.0); Sodium 141 mmol/L (137-145); Triglycerides 131 mg/dL (<150)
[2024-05-07 11:57] LABS: LDL Cholesterol Direct 147 mg/dL
[2024-05-07 17:22] LABS: Hemoglobin A1C 5.7 % (<5.7)
== END 2024-05-07 10:59 | disposition home or self-care (01) ==
PROVIDERS: PCP Family Medicine; Visit Provider Family Medicine
DX: R73.03 Prediabetes (principal); Z79.899 Other long term (current) drug therapy; K21.9 Gastro-esophageal reflux disease without esophagitis; R00.2 Palpitations; E78.2 Mixed hyperlipidemia; Z00.00 Encounter for general adult medical examination without abnormal findings
CPT/HCPCS: 36415; 80053; 80061; 82306; 82607; 83036; 84443; 85025

== ENCOUNTER 2024-05-18 13:21 | Outpatient (CLI) | payer MEDICARE, SELFPAY ==
--- NOTE | 2024-05-18 14:00 | ECHO_ITS ---
Patient Info Name: Patsy Mckenzie Age: 63 years : 1960 Gender: Female Ht: 64 in Wt: 120 lbs BSA: 1.57 m2 HR: 76 bpm BP: 151 / 88 mmHg Heart Rhythm: Sinus Rhythm Technical Quality: Fair Exam Date: 05/18/2024 1:59 PM Exam Location: Echo Lab Patient Status: Outpatient Admit Date: 05/18/2024 Staff Ordering Physician: Aimee Amador MD [employer]: Stephanie Thakkar RDCS Attending Provider: Aimee Amador MD Referring Physician: Marjorie RICHMOND; Exam Type: CA echo doppler color flow Study Info Indications R00.2 - Palpitations Complete two-dimensional, color flow and Doppler transthoracic echocardiogram is performed. Summary 1. Complete two-dimensional, color flow and Doppler transthoracic echocardiogram is performed. 2. normal LV size and function. LVEF 60%, mild to moderate MR. Probable left pleural effusion. Left Ventricular Outflow Tract Name Value Normal LVOT 2D LVOT Diameter 2.0 cm LVOT Doppler LVOT Peak Gradient 3 mmHg LVOT Mean Gradient 1 mmHg LVOT VTI 18 cm LVOT VTI/AV VTI Ratio 0.7 LVOT Stroke Volume 57 ml LVOT CO 3.8 l/min LVOT CI 2.4 l/min/m2 Pulmonic Valve Name Value Normal RVOT Doppler RVOT Peak Gradient 2 mmHg PV Doppler PV Peak Gradient 3 mmHg Mitral Valve Name Value Normal MV Doppler MV Decel Mercer 578 cm/s2 MV PHT 40 ms MV Area (PHT) 5.5 cm2 4.0-5.0 MV Diastolic Function MV E Peak Velocity 79 cm/s MV A Peak Velocity 82 cm/s MV E/A 1.0 MV Decel Time 137 ms MV Annular TDI MV E/e' (Septal) 9.4 <=8.0 MV E/e' (Lateral) 7.2 <=8.0 MV E/e' (Average) 8.3 Tricuspid Valve Name Value Normal TV Regurgitation Doppler TR Peak Velocity 211 cm/s TR Peak Gradient 18 mmHg Estimated PAP/RSVP RA Pressure 10 mmHg <=5 PA Systolic Pressure 28 mmHg <36 RV Systolic Pressure 28 mmHg <36 Aorta Name Value Normal Ascending Aorta Ao Root Diameter (MM) 2.6 cm Ao Root Diam Index (MM) 1.7 cm/m2 Aortic Valve Name Value Normal AV Doppler AV Peak Velocity 132 cm/s AV Peak Gradient 7 mmHg AV Mean Gradient 3 mmHg AV VTI 25 cm AV Area (Cont Eq VTI) 2.2 cm2 >=3.0 AV Area (Cont Eq Gene) 2.1 cm2 AV Regurgitation 2D LVOT Area 3.1 cm2 Ventricles Name Value Normal LV Dimensions 2D/MM IVS Diastolic Thickness (2D) 0.8 cm 0.6-1.0 LVID Diastole (2D) 4.4 cm 3.8-5.2 LVIW Diastolic Thickness (2D) 0.8 cm 0.6-0.9 LVID Systole (2D) 3.0 cm 2.2-3.5 LVOT Diameter 2.0 cm LV Mass (2D Cubed) 110.62 g 67.00-162.00 LV Mass Index (2D Cubed) 71 g/m2 43-95 Relative Wall Thickness (2D) 0.36 LV Fractional Shortening/Ejection Fraction 2D/MM LV Fractional Shortening (2D) 32 % 27-45 LV EF (2D Teicholz) 60 % 54-74 LV Diastolic Volume (4C MOD) 46 ml LV EF (4C MOD) 57 % LV Diastolic Volume (2C MOD) 57 ml LV EF (2C MOD) 60 % LV Diastolic Volume (BP MOD) 53 ml 46-106 LV Diastolic Volume Index (BP MOD) 34 ml/m2 29-61 LV Systolic Volume (BP MOD) 21 ml 14-42 LV Systolic Volume Index (BP MOD) 14 ml/m2 8-24 LV EF (BP MOD) 60 % 54-74 LV Diastolic Length (4C) 6.9 cm LV Systolic Length (4C) 5.6 cm LV Stroke Volume (4C MOD) 26 ml Atria Name Value Normal LA Dimensions LA Dimension (MM) 3.3 cm 2.7-3.8 LA Volume (4C A-L) 40 ml LA Volume (BP A-L) 39 ml RA Dimensions RA Area (4C) 12.0 cm2 <=18.0 Report Signatures Amended by Neal Truong MD on 05/19/2024 07:01
== END 2024-05-18 13:22 | disposition home or self-care (01) ==
PROVIDERS: PCP Family Medicine; Visit Provider Family Medicine
DX: R00.2 Palpitations (principal)
CPT/HCPCS: 93306

== ENCOUNTER 2024-05-24 15:58 | Outpatient (CLI) | payer MEDICARE, SELFPAY ==
--- NOTE | ~2024-05-24 | XR_ITS ---
XR chest 2V w BI decubitus Ordering provider: Aimee Amador MD History: 63 years Female with . J90 - Pleural effusion, not elsewhere classified . Comparison: None. FINDINGS: MEDIASTINUM: The cardiac silhouette is not enlarged. LUNGS: No infiltrates, effusions or pneumothorax. OTHER: No free air under the diaphragm. Degenerative the spine. IMPRESSION: No acute cardiopulmonary pathology. Reviewed, dictated and finalized at location A. K ENGINE ASSEMBLER
== END 2024-05-24 15:59 | disposition home or self-care (01) ==
LOC: ANHIMG 15:59
PROVIDERS: PCP Family Medicine; Visit Provider Family Medicine
DX: J90 Pleural effusion, not elsewhere classified (principal)
CPT/HCPCS: 71048

== ENCOUNTER 2024-08-30 14:40 | Outpatient (CLI) | payer MEDICARE, SELFPAY ==
--- NOTE | ~2024-08-30 | MM_ITS ---
EXAMINATION: MM scrn concepcion implant BI w ryland HISTORY: Screening mammogram TECHNIQUE: Craniocaudal and mediolateral oblique 3-D tomosynthesis images with implant displacement a nd synthetic 2-D images were generated. Craniocaudal and mediolateral oblique views of the breasts wi thout implant displacement were obtained using full field digital mammography. CAD analysis was submi tted and interpreted. COMPARISON: Comparison to multiple prior studies sequentially, with oldest reviewed study dated 05/2016. BREAST PARENCHYMAL COMPOSITION: Dense: The breasts are heterogeneously dense, which may obscure small masses FINDINGS: There is no evidence of suspicious mass, calcification, or architectural distortion to sugg est malignancy in either breast. There has been no suspicious interval change. IMPRESSION: 1. No mammographic evidence of malignancy. 2. Recommend routine screening mammography in one year. BI-RADS Category 1: Negative Reviewed, dictated and finalized at location A.
--- OUTSIDE RECORDS SUMMARY | 2024-08-30 15:12 | XMS_ITS | CONTINUITY OF CARE DOCUMENT ---
Author Name boris escalante Address Unknown Organization [facility] Office Address [address] [place] [address] [address] [place] [address] Phone [phone] Care Team Providers Care Ladle Puller Name Role Phone Lynette Antoine MD Unavailable [phone] Lynette Antoine MD Unavailable [phone] INSURANCE PROVIDERS Payer name Policy type / Coverage type [place] red democrat ID [facility] DUAL COMPLETE (HMO-POS) [id number]
== END 2024-08-30 14:41 | disposition home or self-care (01) ==
PROVIDERS: PCP Family Medicine; Visit Provider Family Medicine
DX: Z12.31 Encounter for screening mammogram for malignant neoplasm of breast (principal)
CPT/HCPCS: 77063; 77067

== ENCOUNTER 2024-09-10 13:52 | Outpatient (CLI) | payer MEDICARE, SELFPAY ==
[2024-09-10 14:29] LABS: Alanine Aminotransferase 111 U/L (6-35); Albumin Level 4.2 g/dL (3.5-5.1); Alkaline Phosphatase 129 U/L (38-126); Anion Gap 9 mmol/L (4-12); Aspartate Amino Transferase 65 U/L (14-36); Bilirubin,Total 0.9 mg/dL (0.2-1.3); Blood Urea Nitrogen 9 mg/dL (7-17); Calcium 9.6 mg/dL (8.4-10.2); Carbon Dioxide 26 mmol/L (22-30); Chloride 106 mmol/L (98-107); Cholesterol 243 mg/dL (0-200); Estimated Glomerular Filt Rate > 60; Glucose 99 mg/dL (65-110); HDL Direct 58 mg/dL; Potassium 3.9 mmol/L (3.4-5.0); Sodium 141 mmol/L (137-145); Triglycerides 118 mg/dL (<150)
[2024-09-10 14:40] LABS: LDL Cholesterol Direct 128 mg/dL
[2024-09-10 15:42] LABS: Hemoglobin A1C 5.7 % (<5.7)
--- OUTSIDE RECORDS SUMMARY | 2024-09-10 15:49 | XMS_ITS | CONTINUITY OF CARE DOCUMENT ---
Author Name boris escalante Address Unknown Organization [facility] Office Address [address] [place] [address] [address] [place] [address] Phone [phone] Care Team Providers Care Doll Eye Setter Name Role Phone Lynette Antoine MD Unavailable [phone] Lynette Antoine MD Unavailable [phone] INSURANCE PROVIDERS Payer name Policy type / Coverage type [place] red republican ID [facility] DUAL COMPLETE (HMO-POS) [id number]
== END 2024-09-10 13:53 | disposition home or self-care (01) ==
PROVIDERS: PCP Family Medicine; Visit Provider Student in an Organized Health Care Education/Training Program
DX: E78.2 Mixed hyperlipidemia (principal); I10 Essential (primary) hypertension; R73.03 Prediabetes
CPT/HCPCS: 36415; 80053; 80061; 83036

== ENCOUNTER 2025-04-03 10:51 | Outpatient (CLI) | payer MEDICARE, SELFPAY ==
[2025-04-03 13:24] LABS: Alanine Aminotransferase 46 U/L (6-35); Albumin Level 4.3 g/dL (3.5-5.1); Alkaline Phosphatase 82 U/L (38-126); Aspartate Amino Transferase 59 U/L (14-36); Bilirubin,Total 0.8 mg/dL (0.2-1.3); Total Protein 8.0 g/dL (6.3-8.2)
== END 2025-04-03 10:52 | disposition home or self-care (01) ==
LOC: ANHGOSHLAB 10:51
PROVIDERS: PCP Student in an Organized Health Care Education/Training Program; Visit Provider Family Medicine
DX: R74.8 Abnormal levels of other serum enzymes (principal)
CPT/HCPCS: 36415; 80076; 86803

== ENCOUNTER 2025-04-10 09:15 | Outpatient (CLI) | payer MEDICARE, SELFPAY ==
--- NOTE | ~2025-04-10 | DEXA_ITS ---
Bone Density Report Name: INGRID BOGGS Age: 64 Sex: Female Ethnicity: Date of : 1960 Indication: postmenopausal osteoporosis; monitoring treatment; Referring Provider: FUNMI DAY Study: Bone densitometry was performed. Exam Date: April 10, 2025 Accession number: [id number] Bone Density: Region BMD T-score Z-score Classification AP Spine(L1-L4) 0.672 -3.4 -1.5 Osteoporosis Femoral Neck (Left) 0.555 -2.6 -1.1 Osteoporosis Total Hip (Left) 0.725 -1.8 -0.5 Osteopenia Femoral Neck (Right) 0.543 -2.8 -1.2 Osteoporosis Total Hip (Right) 0.625 -2.6 -1.3 Osteoporosis Total Hip Mean 0.675 -2.2 -0.9 Osteopenia World Health Organization criteria for BMD impression classify patients as: Normal (T-score at or above -1.0), Osteopenia (T-score between -1.0 and -2.5), or Osteoporosis (T-score at or below -2.5). 10-year Fracture Risk: FRAX not reported because: Some T-score for Spine Total or Hip Total or Femoral Neck at or below -2.5 Treated for osteoporosis Previous Exams: Region Exam Age BMD T-score BMD Change BMD Change Date g/cm2 vs Baseline vs Previous AP Spine (L1-L4) 04/10/2025 64 0.672 -3.4 0.011 (1.7%) -0.002 (-0.2%) 04/21/2022 61 0.673 -3.4 0.013 (1.9%) 0.013 (1.9%) 03/11/2020 59 0.661 -3.5 Total Hip(Left) 04/10/2025 64 0.725 -1.8 0.095 (15.1%)* 0.041 (6.0%)* 04/21/2022 61 0.684 -2.1 0.054 (8.7%)* 0.054 (8.7%)* 03/11/2020 59 0.629 -2.6 Total Hip(Right) 04/10/2025 64 0.625 -2.6 0.032 (5.5%)* -0.020 (-3.0%) 04/21/2022 61 0.645 -2.4 0.052 (8.8%)* 0.052 (8.8%)* 03/11/2020 59 0.593 -2.9 *Denotes significance at 95% confidence level, LSC for AP Spine = 0.022 g/cm2, LSC for Total Hip = 0.027 g/cm2 Clinical Information Provided by Patient: Is being treated for osteoporosis Has used the following medications: Prolia (i.e. denosumab), Vitamin D Patient maximum height was 64 Menopause Age: 50 No regular weight bearing exercise Does not regularly consume dairy products Onset of menses at age 14 Number of children 0 Impression: The patient has osteoporosis, based on the Total Spine T-score. No significant bone loss was observed. Discussion: PATIENT UNDER TREATMENT WITH NO SIGNIFICANT BMD LOSS SINCE LAST EXAM. In an untreated patient, BMD typically declines with age. A lack of decline or gain is usually a sign that treatment is efficacious and fracture risk is reduced. It is important to ask patients whether they are taking their medications and to encourage continued and appropriate compliance with their osteoporosis therapies to reduce fracture risk. It is also important to review their risk factors and encourage appropriate calcium and vitamin D intakes, exercise, fall prevention and other lifestyle measures. Follow-Up: Consider a repeat BMD and Vertebral Fracture Assessment (VFA) exam in 2 years or sooner if medically necessary, to reassess this patient's status. Reported by: MARIA LUISA on 04/10/2025 9:53:00 AM. Reviewed, dictated and finalized at location A.
== END 2025-04-10 09:16 | disposition home or self-care (01) ==
LOC: ANHFOHIMG 09:16
PROVIDERS: PCP Family Medicine; Visit Provider Student in an Organized Health Care Education/Training Program
DX: M81.0 Age-related osteoporosis without current pathological fracture (principal); Z79.899 Other long term (current) drug therapy; M85.852 Other specified disorders of bone density and structure, left thigh; M85.851 Other specified disorders of bone density and structure, right thigh
CPT/HCPCS: 77080

== ENCOUNTER 2025-04-17 16:44 | Outpatient (CLI) | payer MEDICARE, SELFPAY | END 2025-04-17 16:45 | disposition home or self-care (01) | PROVIDERS: PCP Family Medicine; Visit Provider Family Medicine | DX: Z78.0 Asymptomatic menopausal state (principal); Z79.899 Other long term (current) drug therapy; M81.0 Age-related osteoporosis without current pathological fracture | CPT/HCPCS: 36415; 82306 ==